=== PATIENT | female | born 1965 | race African-American/Black ===

== ENCOUNTER 2022-05-16 12:14 | Emergency (ER) | payer OTHER, MEDICAID ==
[~2022-05-16] VITALS: Ht 157.5 cm; Wt 100.0 kg
[2022-05-16 12:26] VITALS: BP 134/102
[2022-05-16 13:21] LABS: Basophils # (auto) 0 10 ^3/uL (0-0.2); Basophils % (auto) 0.8 % (0.0-2.0); Eosinophils # (auto) 0.2 10 ^3/uL (0-0.8); Eosinophils % (auto) 2.7 % (0.0-7.0); Hematocrit 40.4 % (36.0-46.0); Hemoglobin 12.8 g/dL (12.2-16.2); Lymphocytes # (auto) 1.8 10 ^3/uL (0.4-5.4); Lymphocytes % (auto) 29.3 % (10.0-50.0); Mean Corpuscular Hemoglobin 27.5 pg (28.0-32.0); Mean Corpuscular Hgb Conc. 31.8 g/dL (32.0-36.0); Mean Corpuscular Volume 86.5 fL (80.0-100.0); Monocytes # (auto) 0.3 10 ^3/uL (0-1.3); Monocytes % (auto) 4.8 % (0.0-12.0); Neutrophils # (auto) 3.8 10 ^3/uL (1.6-8.6); Neutrophils % (auto) 62.4 % (37.0-80.0); Nucleated Red Blood Cells % 0.1 %; Red Blood Cells 4.67 10^6/uL (4.0-5.20); Red Cell Distribution Width 15.9 % (11.8-14.3); White Blood Cell 6.1 10^3/uL (4.4-10.8)
[2022-05-16 13:35] LABS: Albumin 2.9 g/dL (3.4-5.0); Calcium 8.5 mg/dL (8.5-10.1)
[2022-05-16 13:39] LABS: BUN/Creatinine Ratio 18.4; Bilirubin, Total 0.5 mg/dL (0.2-1.0); Total Protein 6.4 g/dL (6.4-8.2)
[2022-05-16] MEDS ORDERED: ONDANSETRON HCL 4 MG/2 ML VIAL IV ONE (14:15)
[2022-05-16] MEDS ORDERED: AZIT1POW PO (17:33)
== END 2022-05-17 18:29 | disposition home or self-care (01) ==
LOC: ER 12:14 → EDBD 12:14 → ER 18:29
DX: J20.9 Acute bronchitis, unspecified (principal); R11.2 Nausea with vomiting, unspecified; R19.7 Diarrhea, unspecified; R07.89 Other chest pain; I10 Essential (primary) hypertension; I25.2 Old myocardial infarction; E11.9 Type 2 diabetes mellitus without complications; E78.5 Hyperlipidemia, unspecified; Z86.73 Personal history of transient ischemic attack (TIA), and cerebral infarction without residual deficits; Z90.710 Acquired absence of both cervix and uterus; Z20.822 Contact with and (suspected) exposure to COVID-19
CPT/HCPCS: 36415; 71045; 80053; 84484; 85025; 87426; 87804; 93005; 96374; 99285; J2405

== ENCOUNTER 2022-10-15 11:41 | Emergency (ER) | payer OTHER, MEDICAID ==
[~2022-10-15] VITALS: Ht 175.3 cm; Wt 100.0 kg
[~2022-10-15 11:41] MED LIST: ALBU18 IN; ALPR0.5T8 PO; ASPI325T4 PO; ATOR40TA52 PO; AZIT1POW PO; DIPH50CA19 PO; FLUO-125 PO; GABA800T97 PO; HYDR-2595 PO; HYDR25TA4 PO; INSLANTI SC; INSLISPI SC; LORA0.5T20 PO; METO-289 PO; MIRT1TAB38 PO; PROM25TA5 PO
[2022-10-15 12:55] LABS: Basophils # (auto) 0.1 10 ^3/uL (0-0.2); Basophils % (auto) 0.9 % (0.0-2.0); Eosinophils # (auto) 0.3 10 ^3/uL (0-0.8); Eosinophils % (auto) 4.2 % (0.0-7.0); Hematocrit 39.4 % (36.0-46.0); Hemoglobin 12.6 g/dL (12.2-16.2); Lymphocytes # (auto) 2.5 10 ^3/uL (0.4-5.4); Lymphocytes % (auto) 30.9 % (10.0-50.0); Mean Corpuscular Hemoglobin 27.9 pg (28.0-32.0); Mean Corpuscular Volume 87.2 fL (80.0-100.0); Monocytes # (auto) 0.4 10 ^3/uL (0-1.3); Monocytes % (auto) 4.3 % (0.0-12.0); Neutrophils # (auto) 4.8 10 ^3/uL (1.6-8.6); Neutrophils % (auto) 59.7 % (37.0-80.0); Nucleated Red Blood Cells % 0.2 %; Red Blood Cells 4.51 10^6/uL (4.0-5.20); Red Cell Distribution Width 15.6 % (11.8-14.3); White Blood Cell 8.1 10^3/uL (4.4-10.8)
[2022-10-15] MEDS ORDERED: cloNIDine HCL 0.1 MG TAB PO ONE (13:15)
[2022-10-15 13:24] LABS: Potassium 4.2 mmol/L (3.5-5.1)
[2022-10-15 13:31] LABS: Albumin 2.9 g/dL (3.4-5.0); BUN/Creatinine Ratio 14.4 (10.0-20.0); Bilirubin, Total 0.3 mg/dL (0.2-1.0); Calcium 8.4 mg/dL (8.5-10.1); Total Protein 6.4 g/dL (6.4-8.2)
[2022-10-15 14:43] VITALS: BP 134/65
[2022-10-15] MEDS ORDERED: IOHEXOL 350 MG/ML 100ML IJ ONE (20:00)
== END 2022-10-15 20:02 | disposition left against medical advice (07) ==
LOC: EDBD 11:41 → ER 11:41
DX: I10 Essential (primary) hypertension (principal); I69.30 Unspecified sequelae of cerebral infarction; E11.9 Type 2 diabetes mellitus without complications; E78.5 Hyperlipidemia, unspecified; I25.2 Old myocardial infarction; Z95.1 Presence of aortocoronary bypass graft; Z98.890 Other specified postprocedural states; Z98.61 Coronary angioplasty status
CPT/HCPCS: 36415; 70450; 71045; 80053; 83880; 84484; 85025; 85379; 93005; 99285; Q9967

== ENCOUNTER 2023-12-06 11:06 | Inpatient (IN) | payer MEDICAID, OTHER ==
[~2023-12-06] VITALS: Ht 175.3 cm; Wt 96.2 kg
[~2023-12-06 11:06] MED LIST changes: -ASPI325T4 PO; +ASPI325T6 PO; -AZIT1POW PO; +CHOL1CAP21 PO; -DIPH50CA19 PO; +DIPH50CA30 PO; +FAMO-12 PO; +IBUP-1454 PO; -INSLANTI SC; -INSLISPI SC; -LORA0.5T20 PO; -MIRT1TAB38 PO; +OFL50TS OT; +OXCA150T61 PO; +PANT40T PO; +PROM25TA10 PO; -PROM25TA5 PO; +RANO500T3 PO; +SENN-105 PO; +TIRZ7.5I SC
[2023-12-06] MEDS: ACCU-CHEK COMFORT CURVE STRIP VI ONE (11:46)
[2023-12-06 12:01] LABS: Basophils # (auto) 0 10 ^3/uL (0-0.2); Basophils % (auto) 0.5 % (0.0-2.0); Eosinophils # (auto) 0.3 10 ^3/uL (0-0.8); Eosinophils % (auto) 4.1 % (0.0-7.0); Hematocrit 34.4 % (36.0-46.0); Hemoglobin 11.3 g/dL (12.2-16.2); Lymphocytes # (auto) 1.5 10 ^3/uL (0.4-5.4); Lymphocytes % (auto) 21.2 % (10.0-50.0); Mean Corpuscular Hemoglobin 29.4 pg (28.0-32.0); Mean Corpuscular Hgb Conc. 32.8 g/dL (32.0-36.0); Mean Corpuscular Volume 89.7 fL (80.0-100.0); Monocytes # (auto) 0.4 10 ^3/uL (0-1.3); Monocytes % (auto) 5.4 % (0.0-12.0); Neutrophils # (auto) 4.9 10 ^3/uL (1.6-8.6); Neutrophils % (auto) 68.8 % (37.0-80.0); Nucleated Red Blood Cells % 0.1 %; Red Blood Cells 3.84 10^6/uL (4.0-5.20); Red Cell Distribution Width 15.3 % (11.8-14.3); White Blood Cell 7.2 10^3/uL (4.4-10.8)
[2023-12-06 12:15] LABS: INR 0.97 (0.9-1.15); Prothrombin Time 10.3 sec (9.3-11.8)
[2023-12-06 12:30] LABS: Alanine Aminotransferase 22 U/L (7-40); Alkaline Phosphatase 107 U/L (46-116); Anion Gap 7 (5-15); Aspartate Aminotransferase 15 U/L (13-40); BUN/Creatinine Ratio 12.4 (10.0-20.0); Blood Urea Nitrogen 21 mg/dL (9-23); Calcium 9.4 mg/dL (8.7-10.4); Carbon Dioxide 24 mmol/L (20-30); Chloride 106 mmol/L (98-107); Glucose 214 mg/dL (74-106); Potassium 4.2 mmol/L (3.5-5.1); Sodium 137 mmol/L (136-145)
[2023-12-06 12:31] LABS: Albumin 3.7 g/dL (3.2-4.8); Bilirubin, Total 0.3 mg/dL (0.2-1.0); Total Protein 6.6 g/dL (5.7-8.2)
[2023-12-06] MEDS: SODIUM CHLORIDE 0.9% 1,000 ML IV ONE (12:45)
[2023-12-06] MEDS: ONDANSETRON HCL 4 MG/2 ML VIAL IV ONE (12:45)
[2023-12-06 13:30] VITALS: PULSE 94; RESP 18; O2SAT 95
[2023-12-06] MEDS ORDERED: MORPHINE SULFATE INJ 2 MG/ml SYRG IV PRN ×2 (13:30)
[2023-12-06] MEDS ORDERED: HYDROcodone-ACET 5/325MG TAB PO PRN ×2 (13:30→14:15)
[2023-12-06] MEDS ORDERED: ACETAMINOPHEN 325 MG TAB PO PRN (13:30)
[2023-12-06] MEDS ORDERED: NITROGLYCERIN 0.4 MG SL TAB SL PRN (13:30)
[2023-12-06 15:00] VITALS: BP 159/113; PULSE 91; RESP 18; TEMP 97.8; O2SAT 93
[2023-12-06 15:20] VITALS: PULSE 90
[2023-12-06] MEDS: MORPHINE SULFATE INJ 2 MG/ml SYRG IV PRN (16:27)
[2023-12-06] MEDS: ONDANSETRON HCL 4 MG/2 ML VIAL IV PRN (16:33)
[2023-12-06 17:39] VITALS: BP 150/88; PULSE 85; RESP 18; TEMP 99; O2SAT 94
[2023-12-06 20:00] VITALS: PULSE 86; RESP 16
[2023-12-06 20:59] LABS: Urine Bacteria None Seen /hpf (None Seen)
[2023-12-06 21:47] LABS: Urine Blood TRACE /uL (Negative); Urine Clarity Clear (Clear); Urine Color Light-Yellow (Yellow); Urine Protein, UAD 2+ (Negative); Urine Specific Gravity 1.016 (1.001-1.035); Urine Urobilinogen 2 mg/dL (Negative); Urine WBC 1 /hpf (0 - 5); Urine pH 6.5 (5.0-9.0)
[2023-12-06 22:00] VITALS: BP 141/81; PULSE 88; RESP 16; TEMP 98; O2SAT 97
[2023-12-07] VITALS (10 sets, daily range): BP systolic 107–187; BP diastolic 61–91; PULSE 75–86; RESP 16–18; TEMP 97.1–98.4; O2SAT 93–99
[2023-12-07] MEDS: ENOXAPARIN SOD 40 MG/0.4 ML SYRINGE SC SCH (08:44)
[2023-12-07] MEDS: hydrALAZINE HCL 20 MG/ML VL IV PRN (11:47)
[2023-12-07] MEDS: amLODIPine BESYLATE 5 MG TAB PO ONE (12:53)
[2023-12-07] MEDS: METOPROLOL TARTRATE 25 MG TAB PO ONE (12:54)
[2023-12-07] MEDS: hydroCHLOROthiazide 25 MG TAB PO ONE (17:17)
[2023-12-07] MEDS: METOPROLOL TARTRATE 50 MG TAB PO SCH (17:27)
[2023-12-07] MEDS ORDERED: METOPROLOL TARTRATE 25 MG TAB PO SCH (22:00)
[2023-12-08] MEDS ORDERED: amLODIPine BESYLATE 5 MG TAB PO SCH (10:00)
[2023-12-08] MEDS ORDERED: hydroCHLOROthiazide 25 MG TAB PO SCH (10:00)
[2023-12-08 16:27] LABS: Folate (Folic Acid) 6.35 ng/mL (>5.38)
[2023-12-09 08:06] LABS: RPR Non Reactive (Non Reactive)
== END 2023-12-07 21:18 | disposition home health service (06) | DRG 199 ==
LOC: ER 11:06 → TELE-WESTW 13:31
PROVIDERS: ADMIT Internal Medicine; ATTEND Internal Medicine
DX: I16.9 Hypertensive crisis, unspecified (principal); E11.42 Type 2 diabetes mellitus with diabetic polyneuropathy; E78.5 Hyperlipidemia, unspecified; F17.210 Nicotine dependence, cigarettes, uncomplicated; R29.6 Repeated falls; I25.10 Atherosclerotic heart disease of native coronary artery without angina pectoris; Z86.73 Personal history of transient ischemic attack (TIA), and cerebral infarction without residual deficits; I25.2 Old myocardial infarction; Z95.1 Presence of aortocoronary bypass graft; Z90.710 Acquired absence of both cervix and uterus; Z83.3 Family history of diabetes mellitus; Z88.5 Allergy status to narcotic agent; Z88.8 Allergy status to other drugs, medicaments and biological substances; Z91.040 Latex allergy status
CPT/HCPCS: 36415; 70450; 80053; 80320; 81001; 82607; 82746; 82962; 84443; 84484; 85025; 85610; 86592; 93005; 97163; 99291; G0378; J2405